=== PATIENT | female | born 1990 | race Caucasian/White ===

== ENCOUNTER 2017-09-12 09:32 | Inpatient (IN) | payer OTHER ==
[2017-09-12 10:19] VITALS: BMI 28.0
[2017-09-12] MEDS ORDERED: Oxytocin 30 UNIT 30 UNITS/500 ML BAG IV ONE (10:19)
[2017-09-12] MEDS ORDERED: Penicillin G 5 Million Unit Vial IVPB ONE ×2 (10:19→10:59)
[2017-09-12] MEDS ORDERED: Lactated Ringer's 1,000 ML IV SCH (10:30)
[2017-09-12 11:21] LABS: BASO % 0.4 % (0.0-2.0); EOS # 0.1 K/uL (0.0-0.7); EOS % 1.2 % (0.0-4.0); HEMOGLOBIN 10.2 g/dL (11.0-16.0); LYMPH # 1.7 K/uL (1.0-4.3); LYMPH % 19.1 % (20.0-40.0); MEAN CELL VOLUME 76.9 fL (81.0-99.0); MEAN CORPUSCULAR HEMOGLOBIN 25.4 pg (27.0-31.0); MEAN PLATELET VOLUME 9.3 fL (7.2-11.7); MONO # 0.5 K/uL (0.0-0.8); NEUT # 6.5 K/uL (1.8-7.0); NEUT % 73.3 % (50.0-75.0); RBC 4.03 Mil/uL (3.80-5.20); RED CELL DISTRIBUTION WIDTH 15.2 % (11.5-14.5); WHITE BLOOD COUNT 8.9 K/uL (4.8-10.8)
[2017-09-12 11:22] LABS: SQUAMOUS EPITHIAL 1 /hpf (0-5); URINE BILIRUBIN NEGATIVE (NEGATIVE); URINE CLARITY Clear (Clear); URINE COLOR Straw (YELLOW); URINE GLUCOSE (UA) NORMAL (Normal); URINE LEUKOCYTE ESTERASE NEG Leu/uL (Negative); URINE PROTEIN NEGATIVE (NEGATIVE); URINE UROBILINOGEN NORMAL mg/dL (0.2-1.0)
[2017-09-12 11:31] LABS: BLOOD UREA NITROGEN 9 mg/dL (7-17); CALCIUM 8.8 mg/dl (8.6-10.4); GFR AFRICAN-AMERICAN > 60; GFR NON-AFRICAN AMERICAN > 60
[2017-09-12 11:32] LABS: URINE BLOOD 1+ (NEGATIVE)
[2017-09-12] MEDS ORDERED: Bupivacaine HCl/FentaNYL Cit 100 ML EPI ONE (12:45)
[2017-09-12] MEDS ORDERED: Penicillin G Potassium 2.5 MU in Dextrose 5% In Water 50 ML IV SCH (14:00)
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
--- NOTE | 2017-09-12 14:52 | OBDS ---
DELIVERY PERSONNEL Delivery Doctor: Chandrika Funk MD Prism Inspector: Nishant Hill RN Anesthesiologist: Percy ROBLES MATERNAL INFORMATION Delivery Anesthesia: Epidural Estimated Blood Loss (ml): 300 Provider Comments: pt was fully dilated and pushing. Atrumatic, spontanous delivery of head, nuchal cord x 1 reduced. atrumatic, spontanosud eliveyr of anterior followed by posterior soulder followed b y delivery of the body. Both oral and nasal passages of the baby were bulb suctioned. Umbilical cord was clamped and cut. baby handed to mother on abdomen with rn assistnace. fundus firm at level of u mbilucs. second degree perineal laceration repaired with 2-0 and 3-0 chromic. good hemostasis ,no co mplicatins. live male ifnat agpars 9,9 ebl 300ml weight of 5lb 13 ounces LABOR SUMMARY EDC: 10/02/2017 00:00 MEMBRANES Membranes Rupture Method: Spontaneous Amniotic Fluid Color: Clear Amniotic Fluid Amount: Moderate Amniotic Fluid Odor: Normal STAGES OF LABOR Stage 3 hrs: 0 Stage 3 min: 4 BABY A INFORMATION Infant Delivery Date/Time: 09/12/2017 14:04 Method of Delivery: Vaginal Born in Route : No : N/A Forceps: N/A Vacuum Extraction: N/A Shoulder Dystocia : No SHOULDER DYSTOCIA BABY A Infant Delivery Date/Time: 09/12/2017 14:04 PRESENTATION/POSITION BABY A Presentation: Cephalic Cephalic Presentation: Vertex Vertex Position: Left Occipital Anterior Breech Presentation: N/A PLACENTA INFORMATION BABY A Placenta Delivery Time : 09/12/2017 14:08 Placenta Method of Delivery: Spontaneous Placenta Status: Delivered SCORES BABY A Heart Rate 1 min: Slow, Below 100 bpm Resp Effort 1 min: Good Cry Reflex Irritability 1 min: Cough or Sneeze or Pulls Away Muscle Tone 1 min: Active Motion Color 1 min: Blue/Pale Resuscitation Effort 1 min: N/A SCORE 1 MIN: 7 Heart Rate 5 min: >100 bpm Resp Effort 5 min: Good Cry Reflex Irritability 5 min: Cough or Sneeze or Pulls Away Muscle Tone 5 min: Active Motion Color 5 min: Body Dese[place], Extremities Blue SCORE 5 MIN: 9 INFANT INFORMATION BABY A Gestational Age at Delivery: 37.1 Gestational Status: Term Infant Outcome : Liveborn Condition : Stable Infant Sex: Male IDENTIFICATION/MEDS BABY A ID Band Number: [id number] ID Band Location: Left Leg; Left Arm Sensor Applied: Yes Sensor Number: [id number] WEIGHT/LENGTH BABY A Infant Birthweight (gms): 2630 Infant Weight (lb): 5 Weight (oz): 13 Infant Length Inches: 19.75 Length cms: 50.2 CORD INFORMATION BABY A No. Cord Vessels: 3 Nuchal Cord : Around Neck x1, Loose Cord Blood Taken: Yes Infant Suction: Mouth; Nose ASSESSMENT BABY A Infant Complications: None
[2017-09-12] MEDS ORDERED: Erythromycin 0.5% Ophth Oint 1 APPLIC/3.5 G ONE (14:55)
[2017-09-12] MEDS ORDERED: Benzocaine/Menthol 20%-0.5% Topical Spray (60 ml) TOP PRN (14:56)
[2017-09-12] MEDS ORDERED: Oxycodone/Acetaminophen 5/325 mg Tab PO PRN ×2 (14:56)
[2017-09-12] MEDS ORDERED: Phytonadione 1 mg/0.5 ml Inj (Neonatal) ONE (14:56)
[2017-09-13 08:20] LABS: BASO % 0.1 % (0.0-2.0); EOS # 0.1 K/uL (0.0-0.7); EOS % 0.4 % (0.0-4.0); LYMPH # 2.2 K/uL (1.0-4.3); LYMPH % 19.1 % (20.0-40.0); MEAN CELL VOLUME 77.5 fL (81.0-99.0); MEAN CORPUSCULAR HEMOGLOBIN 25.6 pg (27.0-31.0); MEAN PLATELET VOLUME 9.1 fL (7.2-11.7); MONO # 0.7 K/uL (0.0-0.8); MONO % 5.6 % (0.0-10.0); NEUT # 8.8 K/uL (1.8-7.0); NEUT % 74.8 % (50.0-75.0); RBC 3.16 Mil/uL (3.80-5.20); WHITE BLOOD COUNT 11.8 K/uL (4.8-10.8)
[2017-09-13 08:25] LABS: HEMOGLOBIN 8.1 g/dL (11.0-16.0)
--- NOTE | 2017-09-13 09:09 | OBDCSUM ---
Datetime: 09/13/2017 09:07 Discharged to, Provider: Home Follow up at, Provider: Dr Funk Disch Instr Activity: Normal activity Disch Instr Diet: Regular Discharge Instructions, Provider: Routine instructions given Discharge Diagnosis, Provider: Term Delivered Discharge Time: 09/14/2017 09:07 Follow up in weeks, Provider: 6 weeks Disch Referrals: None Contraception discussed, Prov: Yes Disch Activity Restrictions: No sexual activity; Nothing in vagina - [place], tampons, douche Discharge Comment, Provider: dc in am Contraception after Delivery: Not Planning to Use
--- NOTE | 2017-09-13 09:09 | OBPPN ---
Datetime: 09/13/2017 09:07 PP Pain Prov: Within normal limits PP Nausea Prov: Denies PP Flatus Prov: Yes PP BM Prov: No PP Breasts Prov: Normal PP Heart Prov: Normal PP Lungs Prov: Normal PP Abdomen/Uterus Prov: Normal PP Lochia Prov: Normal PP Vulva/Perineum Prov: Normal PP CVA Tenderness Prov: Normal PP Extremities Prov: Normal PP C/S Incision Prov: Not Applicable PP Progress Prov: Normal PP Impression Prov: Normal progression PP Plan Prov: Continue present management PP Progress Note Prov: pt seen and examiend adn reprots pain controlled with medication. pt denies a ny fever, chills nause, vomiting, cp, sob. pt ambuaitnv, voidng, passing flatus, brest feeding VSS PE GEN NAD AA ox 3 RESP: CTAB?l CVS: RRR, +S1/S2 ABDS: soft, NT, ND, no ugaridn no reboudn tendnere, no rgidty FUNDUS: Firm, at level of ubmilucs VE: minimal locha, non foul smelling EXT: no calf tennder negative rosa's sign A/P s/p PPD #1 doignw el f/u am cbc pain manamgnet encourage breast feeding and ambauting Vital Signs Provider PP: Reviewed; Within Normal Limits
[2017-09-13] MEDS: Multiple Vitamins Tab PO SCH (09:25)
[2017-09-14] MEDS ORDERED: Measles, Mumps, and Rubella 0.5 ML VIAL SC ONE (08:20)
[2017-09-14 08:53] VITALS: BP 111/68
[2017-09-14] MEDS: Multiple Vitamins Tab PO SCH (10:18)
[2017-09-14 22:07] VITALS: PULSE 132; RESP 44; TEMP 98.3; O2SAT 100
== END 2017-09-14 13:35 | disposition home or self-care (01) | DRG 775 ==
LOC: C.EROB 09:32 → C.4D 10:19 → C.4M 16:15
PROVIDERS: ADMIT Obstetrics & Gynecology; ATTEND Obstetrics & Gynecology
PROC: 10E0XZZ Delivery of Products of Conception, External Approach (ICD-10-PCS; principal; 2017-09-12)
PROC: 0KQM0ZZ Repair Perineum Muscle, Open Approach (ICD-10-PCS; 2017-09-12)
DX: O69.81X0 Labor and delivery complicated by cord around neck, without compression, not applicable or unspecified (principal); O70.1 Second degree perineal laceration during delivery; Z37.0 Single live birth; Z3A.37 37 weeks gestation of pregnancy

== ENCOUNTER 2018-03-30 14:17 | Emergency (ER) | payer OTHER ==
[2018-03-30 14:26] VITALS: BMI 30.2
[2018-03-30 14:31] VITALS: O2SAT 100
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
[2018-03-30 18:03] VITALS: BP 112/76; PULSE 70; RESP 18; TEMP 98.3
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
== END 2018-03-30 18:02 | disposition home or self-care (01) ==
LOC: C.ER 14:17
DX: O26.892 Other specified pregnancy related conditions, second trimester (principal); R10.30 Lower abdominal pain, unspecified; Z3A.14 14 weeks gestation of pregnancy

== ENCOUNTER 2018-04-06 18:30 | Emergency (ER) | payer OTHER ==
[2018-04-06 18:43] VITALS: BMI 29.9
[2018-04-06 18:44] VITALS: RESP 18; O2SAT 100
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
[2018-04-06 23:30] VITALS: BP 118/73; PULSE 66; TEMP 98.1
--- NOTE | 2018-04-07 08:27 | US ---
Date of service: 04/06/2018 PROCEDURE: OB Pelvic Ultrasound HISTORY: viability LMP: 12/16/2017 COMPARISON: 03/30/2018 FINDINGS: UTERUS: Gestational sac: Single intrauterine gestation. Anterior placenta greater than 2 cm from cervical os. Transverse presentation. No heart rate appreciated. No motion noted BPD 2.84 cm corresponding to 15 weeks 1 day. Head circumference 12.3 cm corresponding to 16 weeks 1 day. Abdominal circumference 10.35 cm corresponding to 16 weeks 2 days. Femur length 2.08 cm corresponding to 16 weeks 1 day. age (Ultrasound estimated): 16 weeks 0 days +/-1 week 1 day Rowena-gestational hemorrhage: None. Limited anatomy visualization and hence assessment Uterus measures 15 cm cephalo caudal extent with an AP dimension of 10.4 cm and a 12 cm transverse dimension estimated cm. Normal in size and appearance. CERVIX: Measures 3.4 cm. Long and closed. No cervical abnormality seen. RIGHT OVARY: Visualized LEFT OVARY: Not visualized FREE FLUID: None. OTHER FINDINGS: None. IMPRESSION: In contrast to the prior study from 03/30/2018 which demonstrated an intrauterine gestation with cardiac activity, this current study fails to demonstrate cardiac activity and also fails to demonstrate motion. Findings are consistent with demise/failed . Clinical follow-up recommended. No gross perigestational hemorrhage seen. Based on the above biometric parameters the estimated age by ultrasound is 16 weeks 0 days +/-1 week 1 day. Comments: Study marked for PA review .
== END 2018-04-06 23:54 | disposition home or self-care (01) ==
LOC: C.ER 18:30
DX: O36.4XX0 Maternal care for intrauterine death, not applicable or unspecified (principal); Z3A.16 16 weeks gestation of pregnancy